=== PATIENT | female | born 1995 | race Caucasian/White ===

== ENCOUNTER 2016-06-13 13:31 | Emergency (ER) | payer MEDICAID ==
[~2016-06-13] VITALS: Wt 81.0 kg
[~2016-06-13 13:31] MED LIST: FERR134T PO; PREN1TAB74 PO
[2016-06-13] MEDS ORDERED: SOD CHLORIDE 0.9% 1,000 ML IV STA (14:37)
[2016-06-13] MEDS ORDERED: DIPHENHYDRAMINE 50 MG INJ IV STA (14:37)
[2016-06-13] MEDS ORDERED: METOCLOPRAMIDE 10 MG INJ IV STA (14:37)
[2016-06-13] MEDS ORDERED: KETOROLAC 30 MG INJ IV STA (14:37)
[2016-06-13 14:48] LABS: URINE BLOOD (Dip) POC Negative (NEGATIVE)
[2016-06-13] MEDS ORDERED: FIORICET PO (15:45)
--- NOTE | 2016-06-13 18:21 | ERD ---
DATE OF SERVICE: HISTORY OF PRESENT ILLNESS: The patient is a 21-year-old female coming in complaining of a headache . Patient is stating that she has had this headache for the last 3 days, but feels that it is worse today. She had some mild neck pain. No trauma. No medications for her pain. She has had no vomi ting. She has had no vision changes. She has had headaches like this in the past. Denies any dizz iness. PAST MEDICAL HISTORY: Denies medical problems. ALLERGIES TO MEDICATIONS: Denies. SURGICAL HISTORY: Denies. SOCIAL HISTORY: Denies. She believes her last normal menstrual period was one month ago. REVIEW OF SYSTEMS: A 12-point review of systems was done. Refer to HPI for positives, all other sy stems negative. PHYSICAL EXAMINATION VITAL SIGNS: Temperature 98, pulse 95, blood pressure 123/60, respiratory rate 18, O2 saturation 99 % on room air. Pain intensity is 0/10. GENERAL: The patient is well-appearing, well-nourished, no acute distress. HEART: Regular rate and rhythm. No murmurs, clicks, rubs or gallops. No S3 or S4. CHEST: Clear to auscultation bilaterally. There are no rales, wheezes or rhonchi. HEENT: Atraumatic. Conjunctivae are pink. Pupils equal, round, and reactive to light. There is no s cleral icterus. Tympanic membranes clear bilaterally. Oropharynx clear. No nystagmus or photophobia . ABDOMEN: Soft, nontender and nondistended. Good bowel sounds. No rebound or guarding. No gross lynsey tonitis. No gross organomegaly or masses. No Bryant sign or McBurney point tenderness. NEURO: Alert and oriented. Cranial nerves 2-12 intact. Motor strength in all 4 extremities with 5/5 strength. Sensation grossly intact. Normal speech and gait. Babinski negative. DTR 2+ throughout. SKIN: There is no apparent rash or petechia. The skin is warm and dry. NECK: C-spine is soft and supple. There is no meningismus. There is no cervical lymphadenopathy. No JVD. No bruits. No goiter. EMERGENCY ROOM COURSE: The patient had a urine dip checked in the ER. Patient's urine showed negat angie leukocytes, negative nitrites, negative blood, negative ketones. The patient had a liter of nor mal saline given with Benadryl, Reglan, and Toradol, and patient's symptoms improved. She stated th at she no longer had a headache. DIAGNOSIS: Headache. MEDICAL DECISION MAKING: I have low suspicion for intracranial hemorrhage or mass effect. Low susp icion for neuro deficit, low suspicion for meningitis or sepsis. Patient's exam is within normal li mits. The patient is nontoxic-appearing. The patient's symptoms improved with fluids. I do not fe el there is indication for further workup or imaging at this time. DISCHARGE: The patient is discharged stable. Patient given prescription for Fioricet and told to f ollow up with primary care within 1 to 2 days for reevaluation. Patient was told if symptoms progre ss or worsen to return to the ER. All other questions answered at time of discharge. Discharge sum dante given at the time of departure. Patient understood and complied with plan. Dictated By: GUANACO PALM PA for [place] HAGEN/MARCI Conf#: [id number] DID#: [id number]
== END 2016-06-13 16:23 | disposition home or self-care (01) ==
LOC: FTE 13:31
DX: R51 Headache (principal)
CPT/HCPCS: 81003; 96374; 96375; J1200; J1885; J2765; J7030; Z7502

== ENCOUNTER 2017-10-13 21:43 | Emergency (ER) | END 2017-10-14 01:09 | disposition home or self-care (01) ==

== ENCOUNTER 2018-05-15 20:50 | Inpatient (IN) | payer MEDICAID ==
[~2018-05-15] VITALS: Ht 165.1 cm; Wt 91.0 kg
[~2018-05-15 20:50] MED LIST changes: +CEPH-443 PO; +FIORICET PO
[2018-05-15 21:00] VITALS: BP 115/66; PULSE 100; RESP 19
--- NOTE | 2018-05-15 21:07 | TRIAGE ---
OB Triage Datetime Report Generated by CPN: 05/15/2018 21:07 Datetime: 05/15/2018 21:05 Time of Arrival: 05/15/2018 20:45 EGA: 38.3 Chief Complaint: UC's Movement: Present Contractions: Regular Vaginal Bleeding: None Vaginal Discharge: Denies Recent Sexual Intercouse: Denies Patient Complaints: Contractions; Other Additional Patient Complaints: Leaking Initial Plan: CEFM Datetime: 05/15/2018 21:01 Vaginal Exam Dilatation (cms): 4.0 Effacement (%): 70 Station: -2 Exam By: Kishore De Jesus RN Membrane Status: Ruptured Membranes Ruptured Date/Time: 05/15/2018 03:00 Membranes Rupture Method: Spontaneous Amniotic Fluid Color: Clear Amniotic Fluid Amount: Small Amniotic Fluid Odor: Normal Vaginal Bleeding: None Cervix, Consistency: Soft Cervix, Position: Posterior Presentation 'A': Cephalic
[2018-05-15 21:22] VITALS: Ht 165.1 cm; Wt 91.0 kg
[2018-05-15] MEDS ORDERED: LACTATED RINGER'S 1,000 ML IV PRN (21:23)
[2018-05-15] MEDS ORDERED: AMPICILLIN 2 GM/NS (PMX) 100 ML IV ONE (21:30)
[2018-05-15] MEDS ORDERED: OXYTOCIN 30 UNITS/LR 500 ML IV PRN (21:30)
[2018-05-15] MEDS ORDERED: CARBOPROST 250 MCG INJ IM PRN (21:30)
[2018-05-15] MEDS ORDERED: METHYLERGONOVINE 0.2 MG INJ IM PRN (21:30)
[2018-05-15] MEDS ORDERED: MISOPROSTOL 200 MCG TAB PR PRN (21:30)
[2018-05-15] MEDS ORDERED: BUTORPHANOL 2 MG INJ IV PRN (21:30)
[2018-05-15] MEDS ORDERED: IBUPROFEN 600 MG TAB PO PRN (21:30)
[2018-05-15] MEDS ORDERED: OXYTOCIN 30 UNITS/LR 500 ML IV SCH ×3 (21:30)
[2018-05-15] MEDS ORDERED: LIDOCAINE 1% (MPF) 30 ML INJ INJ PRN (21:30)
[2018-05-15] MEDS: LACTATED RINGER'S 1,000 ML IV SCH ×2 (22:22→23:56)
--- NOTE | 2018-05-15 23:43 | PREAC ---
Date/Time of Note Date/Time of Note DATE: 05/15/18 TIME: 23:41 Anesthesia Eval and Record Evaluation Time Pre-Procedure Interview DATE: 05/15/18 TIME: 23:41 Age 23 Sex female NPO: 8 hrs Preoperative diagnosis labor pain Planned procedure labor epidural Past Medical History Past Medical History: None Surgery & Anesthesia Issues No known issue Meds Anticoagulation: No Beta Karlene within 24 hr: No Reason Beta Karlene not given: Pt. not on B-Karlene Discontinued Reported Medications Ferrous Sulfate (Iron) 134 Mg Tablet, 134 MG PO DAILY, TAB 02/08/16 Vit-Iron Fumarate-FA ( Vitamin Formula) 1 Tab Tablet, 1 TAB PO DAILY, TAB 09/29/15 Discontinued Scripts Cephalexin* (Keflex*) 500 Mg Capsule, 500 MG PO TID for 5 Days, CAP Prov:PHILLIP ALVAREZ PA-C 10/14/17 Acetamin/Butalbital/Caffeine* (Fioricet*) [id number] Tab, 1 TAB PO Q6H PRN for PAIN, #30 TAB Prov:EVAN PALM PA-C 06/13/16 Current Medications Lactated Ringer's 1,000 ml @ 125 mls/hr Q8H IV Last administered on 05/15/18at 22:22; Admin Dose 125 MLS/HR; Start 05/15/18 at 21:23 Ampicillin 50 ml @ 100 mls/hr Q4H IV ; Start 05/16/18 at 01:30 Butorphanol Tartrate (Stadol) 2 mg Q2H PRN IV .PAIN; Start 05/15/18 at 21:30 Lidocaine (Xylocaine 1% (Mpf)) 30 ml ONCE PRN INJ .EPISIOTOMY; Start 05/15/18 at 21:30 Oxytocin/Lactated Ringer's 500 ml @ 500 mls/hr ONCE POST IV ; Start 05/15/18 at 21:30 Oxytocin/Lactated Ringer's 500 ml @ 125 mls/hr POST IV ; Start 05/15/18 at 21:30 Ibuprofen (Motrin) 600 mg ONCE PRN PO .PAIN 1-5; Start 05/15/18 at 21:30 Lactated Ringer's 1,000 ml @ 2,000 mls/hr Q30M PRN IV .ANESTHESIA; Start 05/15/18 at 21:23 Oxytocin/Lactated Ringer's 500 ml @ 0 mls/hr ONCE PRN IV .VAGINAL BLEEDING; Start 05/15/18 at 21:30 Methylergonovine Maleate (Methergine) 0.2 mg ONCE PRN IM .VAGINAL BLEEDING; Start 05/15/18 at 21:30 Carboprost Tromethamine (Hemabate) 250 mcg ONCE PRN IM .VAGINAL BLEEDING; Start 05/15/18 at 21:30 Misoprostol (Cytotec) 1,000 mcg ONCE PRN [place] .VAGINAL BLEEDING; Start 05/15/18 at 21:30 Oxytocin/Lactated Ringer's 500 ml @ 0 mls/hr FOR AUGMENTATION IV ; Start 05/15/18 at 21:30 Meds reviewed: Yes Allergies Coded Allergies: No Known Allergy (Unverified , 05/15/18) Allergies Reviewed: Yes Labs/Studies Labs Reviewed: Reviewed by anesthesiologist Result Diagram: 05/15/18 2147 Laboratory Tests 05/15/18 21:47 Blood Bank Test 05/15/18 21:47 Antibody Screen POSITIVE Blood Type O POSITIVE Rh Immune Globulin Candidate NO test: Positive Pre-procedure Exam Last vitals Vital Signs Date Temp Pulse Resp B/P (MAP) Pulse Ox O2 O2 Flow FiO2 Time Delivery Rate 05/15/18 98.1 100 19 115/66 Room Air 21:00 (82) Airway: Adequate mouth opening, Adequate thyromental dist Mallampati: Mallampati III Teeth: Normal Lung: Normal Heart: Normal ASA Physical Status ASA physical status: 2 Emergency: None Planned Anesthetic Neuraxial: Epidural Planned Pain Management Epidural, Parenteral pain med, Other neuraxial med Pre-operative Attestations Prior to commencing anesthesia and surgery, the patient was re-evaluated, there was verification of: *The patient's identity *The results of appropriate recent lab work and preoperative vital signs *The above evaluation not changing prior to induction *Anesthetic plan, risk benefits, alternative and complications discussed with patient/family; questions answered; patient/family understands, accepts and wishes to proceed. KAYY ZAPATA MD May 15, 2018 23:43
[2018-05-16] MEDS ORDERED: HYDROmorphONE 0.5 MG/0.5 ML SYG IV PRN ×2
[2018-05-16] MEDS ORDERED: FENTAnyl 2MCG/ML-ROPIV 0.2% 100 ML BAG EPI SCH
[2018-05-16] MEDS ORDERED: KETOROLAC 30 MG INJ IV PRN
[2018-05-16] MEDS ORDERED: NALOXONE (0.4 MG/ML) INJ IV PRN
[2018-05-16] MEDS ORDERED: ONDANSETRON 4 MG INJ IV PRN
[2018-05-16] MEDS ORDERED: ZOLPIDEM 5 MG TAB PO PRN
[2018-05-16] MEDS ORDERED: DIPHENHYDRAMINE 50 MG INJ IV PRN
--- NOTE | 2018-05-16 00:33 | PAC ---
Date/Time of Note Date/Time of Note DATE: 05/16/18 TIME: 00:33 Post-Anesthesia Notes Post-Anesthesia Note Last documented vital signs Vital Signs Date Temp Pulse Resp B/P (MAP) Pulse Ox O2 O2 Flow FiO2 Time Delivery Rate 05/15/18 98.1 100 19 115/66 Room Air 21:00 (82) Activity: WNL Respiratory function: WNL Cardiovascular function: WNL Mental status: Baseline Pain reasonably controlled: Yes Hydration appropriate: Yes Nausea/Vomiting absent: Yes KAYY ZAAPTA MD May 16, 2018 00:33
[2018-05-16] MEDS: AMPICILLIN 1 GM/NS (PMX) 50 ML IV SCH ×2 (03:06→03:39)
[2018-05-16] MEDS: LACTATED RINGER'S 1,000 ML IV SCH (03:07)
[2018-05-16] MEDS ORDERED: OXYTOCIN 30 UNITS/LR 500 ML IV SCH (05:55)
[2018-05-16] MEDS ORDERED: LACTATED RINGER'S 1,000 ML IV* SCH (05:55)
[2018-05-16] MEDS ORDERED: OXYTOCIN 30 UNITS/LR 500 ML IV PRN (06:00)
[2018-05-16] MEDS ORDERED: LANOLIN HPA 1 PKT TOP PRN (06:00)
[2018-05-16] MEDS: IBUPROFEN 600 MG TAB PO SCH ×4 (06:00→23:08)
[2018-05-16] MEDS ORDERED: BENZOCAINE 20% 56 ML SPRAY TOP PRN (06:00)
[2018-05-16] MEDS ORDERED: MISOPROSTOL 200 MCG TAB PR PRN (06:00)
[2018-05-16] MEDS ORDERED: CARBOPROST 250 MCG INJ IM PRN (06:00)
[2018-05-16] MEDS ORDERED: METHYLERGONOVINE 0.2 MG INJ IM PRN (06:00)
--- NOTE | 2018-05-16 06:00 | LDN ---
Date/Time of Note Date/Time of Note DATE: 05/16/18 TIME: 05:57 Delivery Summary of a viable baby boy weighing 3530 grams or 7# 13 oz, 19" long, and with Apgars of 8/9. Weeks of Gestation 38w 4d Placenta Delivered: Spontaneously Meconium: none Perineal laceration: 2 Laceration repair: 2nd degree perineal laceration repaired with 2-0 chromic. Anesthesia type: Epidural Estimated blood loss: 150 Sponge & Needle done & correct: Yes All needle counts correct: Yes Any foreign bodies felt in the: No (vagina) Delivery Information Sex Sex: male Apgars 1 Minute: 8 5 Minute: 9 Suctioning Nose & mouth suctioned at lynsey: No Delee suction performed: No Umbilical Cord Umbilical cord with: 3 Vessels Cord presentations: nuchal cord Cord Blood was obtained: Yes Mother & Baby Disposition Disposition Mom & Baby to Maternity; Good: Yes Baby to NICU: No DANIELA FORDE MD May 16, 2018 06:00
--- NOTE | 2018-05-16 06:05 | HP ---
Date/Time of Note Date/Time of Note DATE: 05/16/18 TIME: 06:00 OB - History Hx of Present Free Text/Dictation 23 y.o. with an IUP at 38w 4d who corrales not had care for 3-4 months and comes in active labor, ruptured membranes and an exam of 70% 4 cm. Chief Complaint: SROM, labor Estimated Due Date: May 26, 2018 : 2 Para: 1 Care: Limited Care Ultrasounds: Normal mid trimester US (per pt as prenatals not available) Obstetrical Complications: None Medical Complications: None Other Concerns: PMHx: none. PSHx: none. NKDA Past Family/Social History * Past Medical, Surgical, Family and Obstetric Histories reviewed from chart. Blood Type: O+ Rubella: unknown RPR/VDRL: Unknown GBS Status: Unknown HBsAG: Unknown OB Admission Exam Vital Signs Vital Signs Vital Signs Date Temp Pulse Resp B/P (MAP) Pulse Ox O2 O2 Flow FiO2 Time Delivery Rate 05/15/18 98.1 100 19 115/66 Room Air 21:00 (82) Physical Exam HEENT: WNL Heart: Rhythm Normal Lungs: Clear Abdomen: WNL Extremities: Normal Reflexes: Normal Cervical Dilatation: 4cm Effacement: 75% Station: -2 Membranes: Ruptured Heart Rate: 150's Accelerations: Accelerations Present Decelerations: No Decelerations Varibility: Moderate Contractions on Admission: < 5 Minutes Apart Intensity: Moderate Last 72 hours Lab Results CBC & BMP 05/15/18 21:47 OB Assessment/Plan Reason for admission: active labor Other Assessment: Unknown GBS status, prolonged ROM Other plan: Pitocin augmentation, Ampicillin prophylaxis. DANIELA FORDE MD May 16, 2018 06:05
[2018-05-16 08:30] VITALS: BP 98/56; PULSE 86; RESP 18
[2018-05-16 12:00] VITALS: BP 100/56; PULSE 87; RESP 18
[2018-05-16 16:30] VITALS: BP 86/50; PULSE 89; RESP 19
[2018-05-16] MEDS: HYDROCODONE/APAP (5/325) TAB PO PRN (18:14)
[2018-05-16 20:00] VITALS: BP 108/59; PULSE 85; RESP 20
[2018-05-17 03:35] VITALS: PULSE 144; RESP 40
[2018-05-17 04:00] VITALS: BP 105/56; PULSE 87; RESP 18
[2018-05-17] MEDS: HYDROCODONE/APAP (5/325) TAB PO PRN ×3 (04:11→22:20)
[2018-05-17] MEDS: IBUPROFEN 600 MG TAB PO SCH ×4 (08:22→23:48)
[2018-05-17 08:30] VITALS: BP 104/52; PULSE 78; RESP 20
--- NOTE | 2018-05-17 13:31 | PN ---
Date/Time of Note Date/Time of Note DATE: 05/17/18 TIME: 13:29 OB Subjective Subjective Subjective PPD# 1 Patient is doing well. She denies nausea, vomiting, shortness of breath, chest pain, headache. She has been ambulating without difficulty, tolerating regular diet. Pain is well controlled on current medications OB Objective Objective Objective VS - Last 72 Hours, by Label Date Temp Pulse Resp B/P (MAP) Pulse Ox O2 O2 Flow FiO2 Time Delivery Rate 05/17/18 98.0 78 20 104/52 Room Air 08:30 (69) 05/17/18 98.1 87 18 105/56 Room Air 04:00 (72) 05/16/18 98.4 85 20 108/59 Room Air 20:00 (75) 05/16/18 98.6 89 19 86/50 (62) Room Air 16:30 05/16/18 97.9 87 18 100/56 Room Air 12:00 (71) 05/16/18 98.0 86 18 98/56 (70) Room Air 08:30 05/15/18 98.1 100 19 115/66 Room Air 21:00 (82) General: AAO X 3, comfortable, NAD, appropriate mood and affect. ABD: +BS. Soft, non-tender. Uterus 2 cm below umbilicus Flank: No CVA tenderness (B/L) LE: Mild edema. No clubbing, cyanosis, thigh or calf tenderness (B/L). Homans 'sign is negative OB Assessment/Plan Other plan: 23 years old s/p normal vaginal delivery at 38 weeks and 4 days. PPD#1 - AF, VSS - Baby is doing well, at bed side. She is bonding well - Contraception methods with R/B/A/FR discussed - Continue care - Discharge home tomorrow - She had no care for approximately 3-4 months. I strongly recommend follow-up with her FINANCIAL INVESTMENT ADVISER. KAYLEE MARTINEZ May 17, 2018 13:31
[2018-05-17 16:00] VITALS: BP 103/56; PULSE 87; RESP 18
[2018-05-17 19:20] VITALS: BP 103/51; PULSE 94; RESP 18
[2018-05-18 04:06] VITALS: BP 102/54; PULSE 90; RESP 18
[2018-05-18] MEDS: IBUPROFEN 600 MG TAB PO SCH ×2 (05:26→11:17)
[2018-05-18 07:45] VITALS: BP 108/76; PULSE 97; RESP 19
[2018-05-18] MEDS ORDERED: DIPHTH/TET/ACEL PERTUSS (ADULT) 0.5 ML VIAL IM* ONE (09:00)
--- NOTE | 2018-05-18 12:16 | PN ---
Date/Time of Note Date/Time of Note DATE: 05/18/18 TIME: 12:14 OB Subjective Subjective Subjective Bottlefeeding. Complaint of low Davis. Mother on breast-feeding. Reports lower back pain when she walks. Denies any dizziness, lightheadedness, shortness of breath or chest pain. Looking in the amount of menses. OB Objective Objective Objective General appearance: Alert and oriented x4 does not appear to be in any acute distress Abdomen: Soft, fundus firm and palpable below the umbilicusAnd nontender Breast: No evidence of mastitis or fissure Extremities: No calf tenderness, no click no cord palpable, negative Homans sign CBC & BMP 05/15/18 21:47 05/17/18 06:16 VS - Last 72 Hours, by Label Date Temp Pulse Resp B/P (MAP) Pulse Ox O2 O2 Flow FiO2 Time Delivery Rate 05/18/18 98.6 97 19 108/76 Room Air 07:45 (87) 05/18/18 98.8 90 18 102/54 Room Air 04:06 (70) 05/17/18 98.3 94 18 103/51 Room Air 19:20 (68) 05/17/18 98.7 87 18 103/56 Room Air 16:00 (72) 05/17/18 98.0 78 20 104/52 Room Air 08:30 (69) 05/17/18 98.1 87 18 105/56 Room Air 04:00 (72) 05/16/18 98.4 85 20 108/59 Room Air 20:00 (75) 05/16/18 98.6 89 19 86/50 (62) Room Air 16:30 05/16/18 97.9 87 18 100/56 Room Air 12:00 (71) 05/16/18 98.0 86 18 98/56 (70) Room Air 08:30 05/15/18 98.1 100 19 115/66 Room Air 21:00 (82) OB Assessment/Plan Other Assessment: Status post day #2 Mild anemia, , asymptomatic Routine care Anticipate DC home tomorrow KARLEY BOUCHER MD May 18, 2018 12:16
--- NOTE | 2018-05-18 12:18 | DS ---
Date/Time of Note Date/Time of Note DATE: 05/18/18 TIME: 12:16 Discharge Summary Admission/Discharge Info Admit Date/Time May 15, 2018 at 21:05 Discharge Date/Time May 18, 2018 Discharge Diagnosis Status post Mild anemia, asymptomatic Patient Condition: Good Consults N/A Procedures Hx of Present Illness 23 y.o. with an IUP at 38w 4d who corrales not had care for 3-4 months and comes in active labor, ruptured membranes and an exam of 70% 4 cm. She had normal spontaneous vaginal delivery. Her intrapartum and course was not complicated. she only had mild anemia that was due to vaginal delivery. Her hemoglobin was 10. She was asymptomatic. On day #2 patient was noted to be stable enough for discharge. She was ambulating. Breast-feeding. Her vitals were stable. Denies any dizziness, lightheadedness, fever, chills or any other symptoms. Advised to take vitamin and iron and follow-up in 6 weeks with OB office. Hospital Course Complicated only by mild anemia, , asymptomatic, hemoglobin was 10 prior to discharge home and she denies any symptoms. Otherwise no other issues Home Meds Discontinued Reported Medications Ferrous Sulfate (Iron) 134 Mg Tablet, 134 MG PO DAILY, TAB 02/08/16 Vit-Iron Fumarate-FA ( Vitamin Formula) 1 Tab Tablet, 1 TAB PO DAILY, TAB 09/29/15 Discontinued Scripts Cephalexin* (Keflex*) 500 Mg Capsule, 500 MG PO TID for 5 Days, CAP Prov:PHILLIP ALVAREZ PA-C 10/14/17 Acetamin/Butalbital/Caffeine* (Fioricet*) [id number] Tab, 1 TAB PO Q6H PRN for PAIN, #30 TAB Prov:EVAN PALM PA-C 06/13/16 Primary Care Provider Care Physician No Primary Time spent on discharge: > 30 minutes KARLEY BOUCHER MD May 18, 2018 12:18
--- NOTE | 2018-05-18 12:21 | PD.PPDC ---
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 Provider Information Physician Information Karley Kay Diagnosis [id number] Final Diagnosis: [id number] Status post Condition [id number] Patient Condition: Zaxih0r Good Diet [id number] Diet: Wrbvy7p Resume Regular Diet Activity/Restrictions [id number] Activity: [id number] Normal Activity [id number] Restrictions: [id number] No Lifting No Driving Minimize Walking Minimize Stair-climbing No Sexual Activity Nothing in the Vagina No [place] No Tampons, douche Wound/Drain Care Instructions [id number] Wound/Drain Care Instructions: [id number] Wash with soap and water Keep clean and dry Follow-up Follow-up with Physician: 6, Week/Weeks Referral Comment: Return to OB clinic if she has any headache, blurred vision, epigastric pain, right upper quadrant pain. Dizziness, lightheadedness, increased vaginal bleeding, breast tenderness, fever, chills or any other concerns Return to clinic for [id number] GERENTOLOGICAL PHYSIOTHERAPIST Instructions: Euerx4d Fever greater than 101 Chills Worsening abdominal pain Excessive Vaginal Bleeding KARLEY KAY MD May 18, 2018 12:21
== END 2018-05-18 14:24 | disposition home or self-care (01) | DRG 807 ==
LOC: OBT 20:50 → L-D 20:53 → OBT 21:05 → L-D 21:05 → PP1 05-16 06:05 → L-D 05-16 06:06 → PP1 05-16 07:48
PROVIDERS: ADMIT Obstetrics & Gynecology; ATTEND Obstetrics & Gynecology
PROC: 10E0XZZ Delivery of Products of Conception, External Approach (ICD-10-PCS; principal; 2018-05-16)
PROC: 0KQM0ZZ Repair Perineum Muscle, Open Approach (ICD-10-PCS; 2018-05-16)
DX: O69.81X0 Labor and delivery complicated by cord around neck, without compression, not applicable or unspecified (principal); Z37.0 Single live birth; O70.1 Second degree perineal laceration during delivery; O90.81 Anemia of the puerperium; D64.9 Anemia, unspecified; Z3A.38 38 weeks gestation of pregnancy; Z23 Encounter for immunization
CPT/HCPCS: 76815; 85025; 85610; 85730; 86592; 86703; 86762; 86850; 86870; 86900; 86901; 87340; 90715; G0463; J0290; J2590; J3010; J7120

== ENCOUNTER 2018-06-12 09:29 | Emergency (ER) | payer MEDICAID ==
[~2018-06-12] VITALS: Ht 167.6 cm; Wt 65.0 kg
[2018-06-12 09:45] VITALS: Ht 167.6 cm; Wt 65.0 kg
[2018-06-12] MEDS ORDERED: KETOROLAC 30 MG INJ IV STA (10:57)
[2018-06-12] MEDS ORDERED: SOD CHLORIDE 0.9% 1,000 ML IV STA (10:57)
[2018-06-12] MEDS ORDERED: ONDANSETRON 4 MG INJ IV STA (10:57)
[2018-06-12] MEDS ORDERED: IOHEXOL 300MG/ML 30 ML BTL ONE ×3 (12:35→12:36)
[2018-06-12] MEDS ORDERED: SOD CHLORIDE 0.9% 100 ML ONE ×2 (12:36)
[2018-06-12] MEDS ORDERED: HYDR-4011 PO (13:39)
[2018-06-12] MEDS ORDERED: CEPH-443 PO (13:39)
[2018-06-12] MEDS ORDERED: FAMO-96 PO (13:39)
--- NOTE | 2018-06-12 13:50 | ERD ---
ER Documentation Chief Complaint Chief Complaint Complains of abdominal pain x1 days HPI 23-year-old female presents with epigastric pain. Patient had a delivery 3 weeks ago. Patient took ibuprofen has had diarrhea appetite. No vomiting. Patient is nauseous. No fevers. Denies medical problems. NKDA. Surgical history denies. Social history denies. Up-to-date on vaccinations ROS All systems reviewed and are negative except as per history of present illness. Medications Home Meds Active Scripts Famotidine* (Pepcid*) 20 Mg Tablet, 20 MG PO BID for 4 Days, #30 TAB Prov:EVAN PALM PA-C 06/12/18 Hydrocodone/Acetaminophen ([place] 5-325 Tablet) 1 Each Tablet, 1 TAB PO Q6H PRN for PAIN, #7 TAB Prov:EVAN PALM PA-C 06/12/18 Cephalexin* (Keflex*) 500 Mg Capsule, 500 MG PO QID for 7 Days, CAP Prov:EVAN PALM PA-C 06/12/18 Allergies Allergies: Coded Allergies: No Known Allergy (Unverified , 05/15/18) PMhx/Soc Medical and Surgical Hx: pt denies Surgical Hx Hx Respiratory Disorders: Yes (ASTHMA) Hx Alcohol Use: No Hx Substance Use: No Hx Tobacco Use: No Smoking Status: Never smoker FmHx Family History: No diabetes, No coronary disease, No other Physical Exam Vitals Vital Signs Date Temp Pulse Resp B/P (MAP) Pulse Ox O2 O2 Flow FiO2 Time Delivery Rate 06/12/18 98.6 70 20 116/56 97 09:45 (76) Physical Exam GENERAL: The patient is well-appearing, well-nourished, in no acute distress HEENT: Atraumatic. Conjunctivae are pink. Pupils equal, round, and reactive to light. There is no scleral icterus. Tympanic membranes clear bilaterally. Oropharynx clear. NECK: C-spine is soft and supple. There is no meningismus. There is no cervical lymphadenopathy. CHEST: Clear to auscultation bilaterally. There are no rales, wheezes or rhonchi. HEART: Regular rate and rhythm. No murmurs, clicks, rubs or gallops. ABDOMEN: Mild tenderness palpation in epigastric region. No rebound tenderness. No distention. BACK: No midline or flank tenderness. Result Diagram: 06/12/18 1105 06/12/18 1105 Results 24 hrs Laboratory Tests Test 06/12/18 11:05 White Blood Count 12.7 10^3/ul Red Blood Count 5.06 10^6/ul Hemoglobin 13.7 g/dl Hematocrit 42.3 % Mean Corpuscular Volume 83.6 fl Mean Corpuscular Hemoglobin 27.1 pg Mean Corpuscular Hemoglobin Concent 32.4 g/dl Red Cell Distribution Width 13.0 % Platelet Count 295 10^3/UL Mean Platelet Volume 9.6 fl Immature Granulocytes % 0.600 % Neutrophils % 79.9 % Lymphocytes % 13.0 % Monocytes % 5.8 % Eosinophils % 0.4 % Basophils % 0.3 % Nucleated Red Blood Cells % 0.0 /100WBC Immature Granulocytes # 0.070 10^3/ul Neutrophils # 10.1 10^3/ul Lymphocytes # 1.7 10^3/ul Monocytes # 0.7 10^3/ul Eosinophils # 0.1 10^3/ul Basophils # 0.0 10^3/ul Nucleated Red Blood Cells # 0.0 10^3/ul Urine Color YELLOW Urine Clarity SLIGHTLY CLOUDY Urine pH 7.0 Urine Specific [place] 1.028 Urine Ketones NEGATIVE mg/dL Urine Nitrite NEGATIVE mg/dL Urine Bilirubin NEGATIVE mg/dL Urine Urobilinogen NEGATIVE mg/dL Urine Leukocyte Esterase 2+ Gianni/ul Urine Microscopic RBC 2 /HPF Urine Microscopic WBC 12 /HPF Urine Squamous Epithelial Cells MODERATE /HPF Urine Bacteria FEW /HPF Urine Mucus FEW /HPF Urine Hemoglobin 2+ mg/dL Urine Glucose NEGATIVE mg/dL Urine Total Protein 1+ mg/dl Urine Test NEGATIVE Sodium Level 144 mmol/L Potassium Level 4.2 mmol/L Chloride Level 105 mmol/L Carbon Dioxide Level 27 mmol/L Anion Gap 12 Blood Urea Nitrogen 11 mg/dl Creatinine 0.53 mg/dl Est Glomerular Filtrat Rate mL/min > 60 mL/min Glucose Level 111 mg/dl Calcium Level 9.4 mg/dl Total Bilirubin 0.4 mg/dl Direct Bilirubin 0.00 mg/dl Indirect Bilirubin 0.4 mg/dl Aspartate Amino Transf (AST/SGOT) 73 IU/L Alanine Aminotransferase (ALT/SGPT) 77 IU/L Alkaline Phosphatase 174 IU/L Total Protein 7.9 g/dl Albumin 4.6 g/dl Globulin 3.30 g/dl Albumin/Globulin Ratio 1.39 Lipase 93 U/L Current Medications Medications Dose Sig/Jero Start Time Status Last (Trade) Ordered Route PRN Stop Time Admin Dose Reason Admin Sodium 1,000 ml @ Q1H STAT 06/12/18 DC 06/12/18 Chloride 1,000 mls/hr IV 10:57 11:37 06/12/18 11:56 Ondansetron 4 mg ONCE STAT 06/12/18 DC 06/12/18 HCl (Zofran IV 10:57 11:35 Inj) 06/12/18 10:59 Ketorolac 30 mg ONCE STAT 06/12/18 DC 06/12/18 Tromethamine IV 10:57 11:36 (Toradol) 06/12/18 10:59 Iohexol 30 ml STK-MED 06/12/18 DC 06/12/18 (Omnipaque ONCE .ROUTE 12:35 12:53 300mg/ ml) 06/12/18 12:36 Iohexol 30 ml STK-MED 06/12/18 DC 06/12/18 (Omnipaque ONCE .ROUTE 12:36 12:52 300mg/ ml) 06/12/18 12:37 Iohexol 30 ml STK-MED 06/12/18 DC 06/12/18 (Omnipaque ONCE .ROUTE 12:36 12:52 300mg/ ml) 06/12/18 12:37 Sodium 100 ml @ ud STK-MED 06/12/18 DC Chloride ONCE .ROUTE 12:36 06/12/18 12:37 Sodium 100 ml @ ud STK-MED 06/12/18 DC 06/12/18 Chloride ONCE .ROUTE 12:36 12:53 06/12/18 12:37 Procedures/MDM DIAGNOSTIC IMAGING REPORT Patient: ADELSO MENDES : 1995 Age: 23 Sex: F MR #: [id number] DOS: 06/12/18 1057 Ordering MD: GUANACO PALM PA-C Location: [facility] Room/Bed: PROCEDURE: CT Abdomen and Pelvis with contrast. CLINICAL INDICATION: Abdominal Pain TECHNIQUE: CT scan of the abdomen and pelvis with contrast was performed on a multi-detector high-resolution CT scanner. The patient was scanned following the uncomplicated intravenous administration of 85 cc of Omnipaque 300 IV co ntrast. Oral contrast was not administered. Coronal and sagittal reformatted images were obtained from the axial source images. DICOM images are available. CTDI equals 13.57 mGy, and DLP equals 765.56 mGy-cm. One or more of the following dose reduction techniques were used: - Automated exposure control. - Adjustment of the mA and/or kV according to patient size. - Use of iterative reconstruction technique. COMPARISON: US ABDOMEN 06/12/2018. FINDINGS: Lower thorax: Normal. Liver: Normal. Bile Ducts: Diffusely dilated extrahepatic duct measuring up to 1.1 cm in diameter (coronal series 601 image 44), without evidence of obstructing radiopaque stone. Gallbladder: Mild to moderately distended. No radiopaque stones visualized. Pancreas: Normal. Spleen: Nonspecific sub-centimeter hypoattenuating lesion in the spleen, may represent a cyst. Adrenal Glands: Normal. Kidneys/Ureters: Normal. Bladder: Normal. Reproductive organs: Normal. Gastrointestinal Tract: Normal. No evidence of appendicitis. Peritoneum/Retroperitoneum: No free fluid or free air. Lymph nodes: Normal. Vessels: Normal. Abdominal/Pelvic Wall: Normal. Bones: Normal. IMPRESSION: 1. Mild to moderately distended gallbladder, without gross CT evidence of cholecystitis. 2. Diffusely dilated extrahepatic duct measuring up to 1.1 cm in diameter, though without evidence of obstructing radiopaque stone. Please correlate with liver function exam. 3. Additional findings as above. DIAGNOSTIC IMAGING REPORT Patient: ADELSO MENDES : 1995 Age: 23 Sex: F MR #: [id number] DOS: 06/12/18 1057 Ordering MD: GUANACO PALM PA-C Location: [facility] Room/Bed: PROCEDURE: US Abdomen. CLINICAL INDICATION: abdominal pain TECHNIQUE: Multiple real-time images were acquired of the patient's right upper quadrant abdomen and retroperitoneum utilizing a high resolution transducer. COMPARISON: None FINDINGS: The liver demonstrates increased echogenicity. The liver is normal in size and no focal solid lesions are seen. The liver measures 15.5 cm in length. The portal vein is patent with normal direction of flow. No intrahepatic biliary dilatation is seen. The gallbladder is moderately distended. Small calcified gallstones are identified within the gallbladder. There is no pericholecystic fluid or gallbladder wall thickening. The common bile duct measures 10 mm in maximal dimension. The visualized portions of the pancreas are unremarkable. The tail of the pancreas is not seen. No free fluid is identified. The right kidney is normal in size, and demonstrate normal echogenicity and cortical thickness. The right kidney measures 11 cm in long dimension. There is no evidence of hydronephrosis. There are no kidney stones. RPTAT: AA IMPRESSION: Moderately distended gallbladder with small calcified stones. Dilated CBD measuring 10 mm. Mild fatty infiltration of the liver. ER Course: 1L NS and Toradol given in ED MDM: 23-year-old female presenting with abdominal pain times 1 day. Patient has findings consistent with gallstones. This case was discussed with Dr. Pineda prior to discharge. There did not seem to be findings consistent with cholecystitis or choledocholithiasis. Patient is recommended to take medications for pain in addition to urinary tract infection and discharged with stricter precautions. Patient is told symptoms change or worsen to return to the ER. Patient is recommended follow-up with primary care. All questions answered at discharge Departure Diagnosis: Primary Impression: UTI (urinary tract infection) Additional Impression: Gallstones Condition: Stable Patient Instructions: Understanding Urinary Tract Infections (UTIs), Gallstones Referrals: [facility] YOU HAVE RECEIVED A MEDICAL SCREENING EXAM AND THE RESULTS INDICATE THAT YOU DO NOT HAVE A CONDITION THAT REQUIRES URGENT TREATMENT IN THE EMERGENCY DEPARTMENT. FURTHER EVALUATION AND TREATMENT OF YOUR CONDITION CAN WAIT UNTIL YOU ARE SEEN IN YOUR DOCTORS OFFICE WITHIN THE NEXT 1-2 DAYS. IT IS YOUR RESPONSIBILITY TO MAKE AN APPOINTMENT FOR FOLOW-UP CARE. IF YOU HAVE A PRIMARY DOCTOR --you should call your primary doctor and schedule an appointment IF YOU DO NOT HAVE A PRIMARY DOCTOR YOU CAN CALL OUR PHYSICIAN REFERRAL HOTLINE AT IF YOU CAN NOT AFFORD TO SEE A PHYSICIAN YOU CAN CHOSE FROM THE FOLLOWING [facility] [id number] [facility] [id number] [facility] [address] [facility] [address] [facility]. [facility] [address] [facility]. [facility] [address] Additional Instructions: FOLLOW UP WITH YOUR PRIMARY CARE PHYSICIAN TOMORROW.Return to this facility if you are not improving as expected. EVAN PALM PA-C Jun 12, 2018 13:50
== END 2018-06-12 13:50 | disposition home or self-care (01) ==
LOC: FTE 09:29
DX: O86.20 Urinary tract infection following delivery, unspecified (principal); O99.53 Diseases of the respiratory system complicating the puerperium; J45.909 Unspecified asthma, uncomplicated; O99.63 Diseases of the digestive system complicating the puerperium; B96.89 Other specified bacterial agents as the cause of diseases classified elsewhere; K80.20 Calculus of gallbladder without cholecystitis without obstruction
CPT/HCPCS: 36415; 74177; 76705; 80053; 81001; 83690; 84703; 85025; 96374; 96375; J1885; J2405; J7030; Q9967; Z7502; Z7610

== ENCOUNTER 2018-07-01 04:20 | Emergency (ER) | payer MEDICAID ==
[~2018-07-01] VITALS: Ht 167.6 cm; Wt 81.8 kg
[~2018-07-01 04:20] MED LIST changes: +FAMO-96 PO; -FERR134T PO; -FIORICET PO; +HYDR-4011 PO; -PREN1TAB74 PO
[2018-07-01 04:25] VITALS: Ht 167.6 cm; Wt 81.8 kg
[2018-07-01] MEDS ORDERED: ONDANSETRON 4 MG INJ IV STA (05:31)
[2018-07-01] MEDS ORDERED: morphine 2 MG INJ IV STA (05:31)
[2018-07-01] MEDS ORDERED: SOD CHLORIDE 0.9% 1,000 ML IV STA (05:31)
[2018-07-01 06:00] VITALS: BP 102/62; PULSE 60; RESP 20
--- NOTE | 2018-07-01 07:16 | ERD ---
ER Documentation Chief Complaint Chief Complaint upper abdominal pain/vomiting since last night. hx of gallstone HPI This is a 23-year-old female who presents to the emergency room for evaluation of abdominal pain. The patient states that she has had abdominal pain for the past 6 hours and states that she does have a history of gallstones. She states that she does feel similar to previous episodes of pain from her gallstones. The patient denies any fevers chills or diarrhea but does states that she has nausea and one episode of nonbilious vomiting. ROS All systems reviewed and are negative except as per history of present illness. Medications Home Meds Active Scripts Famotidine* (Pepcid*) 20 Mg Tablet, 20 MG PO BID for 4 Days, #30 TAB Prov:EVAN PALM PA-C 06/12/18 Hydrocodone/Acetaminophen ([place] 5-325 Tablet) 1 Each Tablet, 1 TAB PO Q6H PRN for PAIN, #7 TAB Prov:EVAN PALM PA-C 06/12/18 Cephalexin* (Keflex*) 500 Mg Capsule, 500 MG PO QID for 7 Days, CAP Prov:EVAN PALM PA-C 06/12/18 Allergies Allergies: Coded Allergies: No Known Allergy (Unverified , 05/15/18) PMhx/Soc Medical and Surgical Hx: pt denies Medical Hx, pt denies Surgical Hx Hx Respiratory Disorders: Yes (ASTHMA) Hx Alcohol Use: No Hx Substance Use: No Hx Tobacco Use: No Smoking Status: Never smoker Physical Exam Vitals Vital Signs Date Temp Pulse Resp B/P (MAP) Pulse Ox O2 O2 Flow FiO2 Time Delivery Rate 07/01/18 60 20 102/62 100 Room Air 06:00 (75) 07/01/18 68 16 103/43 100 Room Air 05:06 (63) 07/01/18 98.2 73 18 148/88 100 04:25 (108) Physical Exam Const: No acute distress Head: Atraumatic Eyes: Normal Conjunctiva ENT: Normal External Ears, Nose and Mouth. Neck: Full range of motion. No meningismus. Resp: Clear to auscultation bilaterally Cardio: Regular rate and rhythm, no murmurs Abd: Negative Bryant sign, epigastric tenderness to palpation otherwise soft, non tender, non distended. Normal bowel sounds Skin: No petechiae or rashes Back: No midline or flank tenderness Ext: No cyanosis, or edema Neur: Awake and alert Psych: Normal Mood and Affect Result Diagram: 07/01/18 0455 07/01/18 0455 Results 24 hrs Laboratory Tests Test 07/01/18 04:55 07/01/18 06:52 07/01/18 06:53 07/01/18 06:55 White Blood Count 9.4 10^3/ul Red Blood Count 4.45 10^6/ul Hemoglobin 12.2 g/dl Hematocrit 37.3 % Mean Corpuscular 83.8 fl Volume Mean Corpuscular 27.4 pg Hemoglobin Mean Corpuscular 32.7 g/dl Hemoglobin Concent Red Cell 12.7 % Distribution Width Platelet Count 248 10^3/UL Mean Platelet 9.4 fl Volume Immature 0.500 % Granulocytes % Neutrophils % 57.3 % Lymphocytes % 33.6 % Monocytes % 7.1 % Eosinophils % 1.1 % Basophils % 0.4 % Nucleated Red Blood 0.0 /100WBC Cells % Immature 0.050 10^3/ul Granulocytes # Neutrophils # 5.4 10^3/ul Lymphocytes # 3.1 10^3/ul Monocytes # 0.7 10^3/ul Eosinophils # 0.1 10^3/ul Basophils # 0.0 10^3/ul Nucleated Red Blood 0.0 10^3/ul Cells # Sodium Level 144 mmol/L Potassium Level 3.6 mmol/L Chloride Level 107 mmol/L Carbon Dioxide 27 mmol/L Level Anion Gap 10 Blood Urea Nitrogen 14 mg/dl Creatinine 0.61 mg/dl Est Glomerular > 60 mL/min Filtrat Rate mL/min Glucose Level 114 mg/dl Calcium Level 9.1 mg/dl Total Bilirubin 0.2 mg/dl Direct Bilirubin 0.00 mg/dl Indirect Bilirubin 0.2 mg/dl Aspartate Amino 75 IU/L Transf (AST/SGOT) Alanine 62 IU/L Aminotransferase (A LT/SGPT) Alkaline 183 IU/L Phosphatase Total Protein 7.0 g/dl Albumin 4.3 g/dl Globulin 2.70 g/dl Albumin/Globulin 1.59 Ratio Lipase 176 U/L Urine Color YELLOW Urine Clarity SLIGHTLY CLOUDY Urine pH 5.0 Urine Specific 1.025 [place] Urine Ketones NEGATIVE mg/dL Urine Nitrite NEGATIVE mg/dL Urine Bilirubin NEGATIVE mg/dL Urine Urobilinogen 1+ mg/dL Urine Leukocyte TRACE Gianni/ul Esterase Urine Microscopic 3 /HPF RBC Urine Microscopic 6 /HPF WBC Urine Squamous FEW /HPF Epithelial Cells Urine Mucus FEW /HPF Urine Hemoglobin NEGATIVE mg/dL Urine Glucose NEGATIVE mg/dL Urine Total Protein NEGATIVE mg/dl Bedside Urine pH 6.0 (LAB) Bedside Urine Trace Protein (LAB) Bedside Urine Negative Glucose (UA) Bedside Urine Trace Ketones (LAB) Bedside Urine Blood Negative Bedside Urine Negative Nitrite (LAB) Bedside Urine Trace Leukocyte Esterase (L POC Beta HCG, NEGATIVE Qualitative Current Medications Medications Dose Sig/Jero Start Time Status Last (Trade) Ordered Route PRN Stop Time Admin Dose Reason Admin Sodium 1,000 ml @ Q1H STAT 07/01/18 DC 07/01/18 Chloride 1,000 mls/hr IV 05:31 07/01/18 06:00 06:30 Morphine 2 mg ONCE STAT 07/01/18 DC 07/01/18 Sulfate IV 05:31 07/01/18 05:59 (morphine) 05:32 Ondansetron 4 mg ONCE STAT 07/01/18 DC 07/01/18 HCl (Zofran IV 05:31 07/01/18 05:59 Inj) 05:32 Procedures/MDM This 23-year-old female presents the ER for evaluation of abdominal pain and nausea and one episode of vomiting. The patient does have a history of gallstones. On my exam the patient is afebrile, nontoxic-appearing and hemodynamically stable. She is a negative Bryant sign however she does have mild epigastric tenderness to palpation. The patient was placed on a monitor she was given IV fluids, Zofran, and IV morphine. The patient's lab work shows no leukocytosis, she has no transaminitis, no elevations in the bilirubin. She does have an ultrasound for less than 3 months ago which does show gallstones. I do believe the patient is likely suffering from biliary colic secondary to gallstones as opposed to cholecystitis or choledocholithiasis given her non- focal examination, and lack leukocytosis and LFT elevation. The patient is feeling much better after receiving IV analgesia and will be discharged home with a prescription for Zofran, and Tylenol with codeine. Departure Diagnosis: Primary Impression: Biliary colic Additional Impressions: Vomiting Abdominal pain Condition: Stable RISA MINOR DO Jul 01, 2018 07:15
[2018-07-01] MEDS ORDERED: ONDA4TAB8 PO (07:17)
[2018-07-01] MEDS ORDERED: ACET1TAB40 PO (07:17)
== END 2018-07-01 07:35 | disposition home or self-care (01) ==
LOC: E/R 04:20
DX: K80.50 Calculus of bile duct without cholangitis or cholecystitis without obstruction (principal); R40.2142 Coma scale, eyes open, spontaneous, at arrival to emergency department; R40.2252 Coma scale, best verbal response, oriented, at arrival to emergency department; R40.2362 Coma scale, best motor response, obeys commands, at arrival to emergency department; J45.909 Unspecified asthma, uncomplicated
CPT/HCPCS: 36415; 80053; 81001; 81025; 83690; 85025; 96374; 96375; J2270; J2405; J7030; Z7502; 81003